=== PATIENT | female | born 1945 | race Caucasian/White ===

== ENCOUNTER 2016-12-07 05:50 | Day surgery (SDC) | payer MEDICARE, OTHER ==
[~2016-12-07] VITALS: Ht 154.9 cm; Wt 98.2 kg
[~2016-12-07 05:50] MED LIST: ASPI81TA2 PO; FOLI1 PO; GLIP10 PO; LISI-662 PO; METF500T4 PO; PIOG45TA PO; PYRI50TA9 PO; PYRI60TA PO; SIMV-261 PO; TRIA1CAP6 PO
[2016-12-07] MEDS ORDERED: RINGERS SOLUTION,LACTATED 500 ML IV ONE ×2 (06:00→06:19)
[2016-12-07] MEDS ORDERED: BESIFLOXACIN HCL 0.6% 5 ML OPHTHALMIC SUSPENSION OS ONE (06:00)
[2016-12-07] MEDS ORDERED: DICLOFENAC SODIUM 0.1% 2.5 ML OPHTHALMIC SOLUTION OS ONE (06:00)
[2016-12-07] MEDS ORDERED: BESIFLOXACIN HCL 0.6% 5 ML OPHTHALMIC SUSPENSION ONE (06:18)
[2016-12-07] MEDS ORDERED: DICLOFENAC SODIUM 0.1% 2.5 ML OPHTHALMIC SOLUTION ONE (06:18)
[2016-12-07] MEDS ORDERED: TROPICAMIDE 1% 2 ML OPHTHALMIC SOLUTION ONE (06:19)
[2016-12-07] MEDS ORDERED: PHENYLEPHRINE HCL 2.5% 2 ML OPHTHALMIC SOLUTION ONE (06:19)
[2016-12-07] MEDS: PHENYLEPHRINE HCL 2.5% 2 ML OPHTHALMIC SOLUTION OS SCH ×2 (06:38→06:43)
[2016-12-07] MEDS: TROPICAMIDE 1% 2 ML OPHTHALMIC SOLUTION OS SCH ×2 (06:38→06:43)
[2016-12-07 06:50] LABS: GLUCOSE,POINT OF CARE 99 MG/DL (70-110)
[2016-12-07] MEDS ORDERED: LIDOCAINE HCL/PF 2% 5 ML VIAL INJ ONE (12:00)
[2016-12-07] MEDS ORDERED: FentaNYL CITRATE-PF 100 MCG/2 ML VIAL IVP ONE (12:00)
[2016-12-07] MEDS ORDERED: PROPOFOL 1% 20 ML VIAL IVP ONE (12:00)
[2016-12-07] MEDS ORDERED: MIDAZOLAM HCL 2 MG/2 ML VIAL IVP ONE (12:00)
[2016-12-07] MEDS ORDERED: POVIDONE-IODINE 10% 15 ML SOLUTION UD TP ONE (16:54)
[2016-12-07] MEDS ORDERED: HYALURONATE SOD/CHONDROITIN SOD 0.5 ML VIAL IO ONE (16:54)
[2016-12-07] MEDS ORDERED: TETRACAINE HCL VISCOUS 0.5% 0.6 ML OPHTHALMIC SOLUTION OS ONE (16:54)
[2016-12-07] MEDS ORDERED: DEXAMETHASONE SOD PHOS 4 MG/ML VIAL IVP ONE (16:54)
[2016-12-07] MEDS ORDERED: LIDOCAINE HCL/PF 1% 2 ML VIAL IM ONE (16:54)
[2016-12-07] MEDS ORDERED: HYALURONATE SODIUM 12 MG/ML 0.8 ML SYRINGE IO ONE (16:54)
== END 2016-12-07 09:10 | disposition home or self-care (01) ==
LOC: SURGERY 05:50
PROVIDERS: ATTEND Specialist
DX: H25.012 Cortical age-related cataract, left eye (principal); E11.36 Type 2 diabetes mellitus with diabetic cataract; I10 Essential (primary) hypertension; E78.00 Pure hypercholesterolemia, unspecified; G70.00 Myasthenia gravis without (acute) exacerbation; D64.9 Anemia, unspecified; E66.9 Obesity, unspecified; Z90.5 Acquired absence of kidney
CPT/HCPCS: 66984; 82962; 93005; C1780; J2250; J2704; J3010; J3490; J7120; J1100